=== PATIENT | male | born 1970 | race Caucasian/White ===

== ENCOUNTER → 2025-03-11 | Outpatient (CLI) | payer OTHER, SELFPAY ==
--- NOTE | 2025-03-11 13:21 | RAD_ITS ---
PROCEDURE: FOREARM 2 VIEWS 03/11/2025 REASON FOR EXAM: LEFT ARM INJURY TECHNIQUE: Procedure Code: RADFA Modality: DX Procedure: FOREARM 2 VIEWS Two views of the left forearm COMPARISON: None FINDINGS: There is no fracture or dislocation identified. There is a 0.4 x 0.1 cm radiopaque density in the soft tissues of the distal 3rd of the ulna, 0.6 cm from the skin surface. RAD/Forearm 2 Views IMPRESSION: There is a 0.4 x 0.1 cm radiopaque density in the soft tissues of the distal 3r d of the ulna, 0.6 cm from the skin surface. Reading Location: [facility]
== END | disposition home or self-care (01) ==
LOC: MTRAD 13:21
PROVIDERS: Referring Provider Physician Assistant; Visit Provider Physician Assistant
DX: S49.92XA Unspecified injury of left shoulder and upper arm, initial encounter (principal); X58.XXXA Exposure to other specified factors, initial encounter
CPT/HCPCS: 73090